=== PATIENT | male | born 1970 | race Caucasian/White ===

== ENCOUNTER 2017-07-25 02:10 | Emergency (ER) | payer BC ==
[~2017-07-25] VITALS: Ht 182.9 cm; Wt 77.1 kg
--- NOTE | 2017-07-25 02:28 | NUR ---
Patient walked in to ER c/o LEFT flank pain radiating to scrotum. Patient appears to be in distress, breathing rapidly, pale, diaphoretic, and unable to hold still. Patient states the pain woke him from sleep. Patient states some nausea especially with intake of water PO. To room 5A. SHAHRAM performed MSE.
[2017-07-25] MEDS ORDERED: HYDROMORPHONE 1 MG/1 ML DISP.SYRIN IV ONE ×2 (02:30→03:15)
[2017-07-25] MEDS ORDERED: IV NORMAL SALINE 1000 ML BAG IV ONE (02:30)
[2017-07-25] MEDS ORDERED: ONDANSETRON 4 MG/2 ML VIAL IV ONE (02:30)
[2017-07-25] MEDS ORDERED: KETOROLAC TROMETHAMINE 15 MG INJ IV ONE (02:30)
[2017-07-25] MEDS ORDERED: ONDANSETRON 4 MG/2 ML VIAL ONE (02:41)
[2017-07-25] MEDS ORDERED: HYDROMORPHONE 2 MG/1 ML DISP.SYRIN ONE ×2 (02:41→03:16)
[2017-07-25] MEDS ORDERED: KETOROLAC TROMETHAMINE 30 MG INJ ONE (02:41)
[2017-07-25 02:45] LABS: BASOPHILS % (AUTO) 0.2 % (0.0-2.0); EOSINOPHILS # (AUTO) 0.1 K/uL (0.0-0.7); EOSINOPHILS % (AUTO) 1.6 % (0.0-7.0); HEMATOCRIT 46.1 % (36.7-47.1); HEMOGLOBIN 15.9 g/dL (12.5-16.3); LYMPHOCYTES # (AUTO) 3.2 K/uL (20.0-40.0); LYMPHOCYTES % (AUTO) 39.9 % (20.5-51.5); MEAN CORPUSCULAR HEMOGLOBIN 32.3 uug (23.8-33.4); MEAN CORPUSCULAR HGB CONC 35 g/dL (32.5-36.3); MEAN CORPUSCULAR VOLUME 93.5 fL (73.0-96.2); MONOCYTES # (AUTO) 0.5 K/uL (2.0-10.0); MONOCYTES % (AUTO) 6.8 % (0.0-11.0); NEUTROPHILS # (AUTO) 4.1 K/uL (1.8-8.9); NEUTROPHILS % (AUTO) 51.5 % (38.5-71.5); PLATELET COUNT (AUTO) 269 K/uL (152-348); RED BLOOD CELL COUNT(AUTO) 4.93 MIL/uL (4.06-5.63)
--- NOTE | 2017-07-25 02:48 | NUR ---
Patient to radiology for CT scan via gurney.
[2017-07-25 02:54] LABS: CREATININE 1.1 mg/dL (0.6-1.3); POTASSIUM 3.4 mmol/L (3.5-5.1)
[2017-07-25 03:00] LABS: BILIRUBIN,DIRECT 0.1 mg/dL (0.0-0.2); BILIRUBIN,TOTAL 0.6 mg/dL (0.2-1.0); TOTAL PROTEIN, SERUM 8.1 g/dL (6.4-8.2)
--- NOTE | 2017-07-25 03:01 | NUR ---
Patient returned from CT scan. Prior to CT patient reported some relief from pain and was calm, upon arrival patient appears to be in distress again. ERMD notified, orders received.
[2017-07-25] MEDS ORDERED: TAMSULOSIN HCL 0.4 MG CAP.SR.24H PO ONE (03:15)
[2017-07-25] MEDS ORDERED: TAMSULOSIN HCL 0.4 MG CAP.SR.24H ONE (03:24)
--- NOTE | 2017-07-25 03:30 | NUR ---
Patient stated he felt ready to be discharged and was presented with aftercare instructions, IV removed. Catheter intact and site benign. Pressure and 4x4 gauze applied to site. No bleeding noted. However, when patient attempted to get dressed he began to vomit. ERMD notified, orders received.
[2017-07-25] MEDS ORDERED: ONDANSETRON ODT 4 MG TAB.RAPDIS ONE (03:54)
[2017-07-25] MEDS ORDERED: METOCLOPRAMIDE HCL 10 MG/2 ML VIAL IM ONE (04:00)
[2017-07-25] MEDS ORDERED: METOCLOPRAMIDE HCL 10 MG/2 ML VIAL ONE (04:03)
--- NOTE | 2017-07-25 04:05 | NUR ---
PO medication and IM medication unsuccessful at controlling patient's vomiting. With each medication patient felt the nausea subside but with movement began to vomit again. ERMD notified, orders received.
[2017-07-25] MEDS ORDERED: diphenhydrAMINE 50 MG/1 ML VIAL IV ONE (04:15)
[2017-07-25] MEDS ORDERED: PROCHLORPERAZINE EDISYLATE 10 MG/2 ML VIAL IV ONE (04:15)
[2017-07-25] MEDS ORDERED: ONDANSETRON ODT 4 MG TAB.RAPDIS SL ONE (04:30)
[2017-07-25] MEDS ORDERED: PROCHLORPERAZINE EDISYLATE 10 MG/2 ML VIAL ONE (04:31)
[2017-07-25] MEDS ORDERED: diphenhydrAMINE 50 MG/1 ML VIAL ONE (04:31)
--- NOTE | 2017-07-25 04:47 | NUR ---
Patient is resting comfortably in bed with eyes closed. Patient and staff discussed waiting longer before attempting to stand, patient in agreement with plan. Patient states he will attempt to stand and walk around the room when he feels ready prior to D/C of IV. ERMD notified, and is ok with the plan.
--- NOTE | 2017-07-25 05:33 | NUR ---
Patient is resting comfortably in bed with eyes closed
--- NOTE | 2017-07-25 06:13 | NUR ---
Patient states he is ready to be discharged. Patient ambulated and completed PO challenge prior to removal of IV. Patient discharged to home in stable conditon. Written and verbal after care instructions given. Patient verbalizes understanding of instructions.
== END 2017-07-25 06:15 | disposition home or self-care (01) ==
LOC: ER 02:13
DX: N23 Unspecified renal colic (principal)
CPT/HCPCS: 74176; 80048; 80076; 83690; 85025; 96361; 96372; 96374; 96375; 96376; 99285; A4663; J0780; J1170 ×2; J1200; J1885; J2405; J2765; J7030; Q0162; 36415